=== PATIENT | female | born 1960 | race African-American/Black ===

== ENCOUNTER 2019-03-04 19:12 | Emergency (ER) | payer BC, OTHER ==
[~2019-03-04] VITALS: Ht 170.2 cm; Wt 103.0 kg
[2019-03-04 19:20] VITALS: Ht 170.2 cm; Wt 103.0 kg
[2019-03-04 20:07] LABS: BASOPHIL % 0.6 % (0-2); PLATELET COUNT 230 x10^3mcL (130-400)
[2019-03-04 20:08] LABS: RED CELL DISTRIBUTION WIDTH 15.2 % (11.5-14.5)
[2019-03-04 20:18] LABS: microscopic required? NO
[2019-03-04 20:19] LABS: CALCIUM 9.2 mg/dL (8.5-10.1); CHLORIDE SERUM 104 mmol/L (98-107); CREATININE SERUM 0.7 mg/dL (0.6-1.0); GFR1 > 60 mL/min; GLUCOSE SERUM 107 mg/dL (74-106); POTASSIUM SERUM 3.3 mmol/L (3.5-5.1); SODIUM SERUM 140 mmol/L (136-145)
[2019-03-04 20:31] LABS: ALBUMIN 3.7 g/dL (3.4-5.0); ALKALINE PHOSPHATASE 57 U/L (46-116); ALT/SGPT 33 U/L (14-59); BILIRUBIN TOTAL 0.42 mg/dL (0.20-1.00); LIPASE 66 IU/L (73-393); MAGNESIUM 2.3 mg/dL (1.8-2.4); T4(THYROXINE) 7.8 ug/dL (4.7-13.3); TOTAL PROTEIN, SERUM 7.6 g/dL (6.4-8.2)
[2019-03-04 20:40] LABS: AST/SGOT 38 U/L (15-37); CHOLESTEROL 204 mg/dL (<200); HDL CHOLESTEROL 63 mg/dL (40-60)
[2019-03-04 20:47] LABS: urine erythrocyte NEGATIVE (NEGATIVE)
[2019-03-04 21:07] LABS: AMPHETAMINE QUAL UR NONE DETECTED (See below)
[2019-03-04 22:42] VITALS: BP 152/80
== END 2019-03-04 22:42 | disposition left against medical advice (07) ==
LOC: ED 19:12
PROVIDERS: Emergency Medicine
DX: I24.9 Acute ischemic heart disease, unspecified (principal); I10 Essential (primary) hypertension; Z57.5 Occupational exposure to toxic agents in other industries; D86.9 Sarcoidosis, unspecified
CPT/HCPCS: 36415; 82962; 83880; J3490